=== PATIENT | female | born 1985 | race Native Hawaiian/Other Pacific Islander ===

== ENCOUNTER 2019-10-26 14:39 | Outpatient (CLI) | payer BC | END 2019-10-26 19:32 | disposition home or self-care (01) | LOC: MAMMO 14:39 | DX: Z80.3 Family history of malignant neoplasm of breast (principal); Z12.31 Encounter for screening mammogram for malignant neoplasm of breast ==

== ENCOUNTER 2021-03-01 15:24 | Outpatient (CLI) | payer BC | END 2021-03-01 23:03 | disposition home or self-care (01) | LOC: MAMMO 15:24 | PROVIDERS: ATTEND Obstetrics & Gynecology | DX: Z80.3 Family history of malignant neoplasm of breast (principal); Z12.31 Encounter for screening mammogram for malignant neoplasm of breast ==

== ENCOUNTER 2022-05-24 09:51 | Outpatient (CLI) | payer BC | END 2022-05-24 19:53 | disposition home or self-care (01) | LOC: MAMMO 09:51 | PROVIDERS: ATTEND Obstetrics & Gynecology | DX: Z12.31 Encounter for screening mammogram for malignant neoplasm of breast (principal) ==